=== PATIENT | male | born 1965 | race Caucasian/White ===

== ENCOUNTER 2018-09-10 03:25 | Emergency (ER) | payer BC ==
[2018-09-10 03:33] VITALS: BMI 30.1
[2018-09-10 03:35] VITALS: TEMP 98.5; O2SAT 98
[2018-09-10] MEDS ORDERED: Oxycodone/Acetaminophen 5/325 mg Tab PO STA (03:51)
--- NOTE | 2018-09-10 03:55 | ED PDOC ---
Arrival/HPI - General Chief Complaint: Upper Extremity Problem/Injury Time Seen by Provider: 09/10/18 03:39 Historian: Patient, [employer] ([facility] [employer] ID#[id number]) - History of Present Illness Narrative History of Present Illness (Text): 09/10/18 03:52 53 year old male, with no significant past medical history, presents to the emergency department with left shoulder pain, for 2 days. Patient encounter was translated by [facility] system. Patient states he was at work when he things he pulled it. Patient states he didn't feel much pain in the instance, but felt it the next day. Patient states the pain makes it very difficult for him to sleep. Patient denies any fevers, chills, headache, dizziness, chest pain, shortness of breath, cough, abdominal pain, nausea, vomiting, diarrhea, back pain, neck pain, urinary/bowel changes, or any other complaint. Time/Duration: < week (2 days) Symptom Onset: Gradual Symptom Course: Unchanged Quality: Aching Context: Work Past Medical History - Provider Review Nursing Documentation Reviewed: Yes - Past Medical History Past Medical History: No Previous - Cardiac Hx Pacemaker: No - Pulmonary Hx Respiratory Disorders: No - Neurological Hx Paralysis: No - HEENT Hx HEENT Disorder: No - Renal Hx Renal Disorder: No - Endocrine/Metabolic Hx Endocrine Disorders: No - Hematological/Oncological Hx Blood Transfusions: No - Integumentary Hx Dermatological Disorder: No - Musculoskeletal/Rheumatological Hx Musculoskeletal Disorders: No - Gastrointestinal Hx Gastrointestinal Disorders: No - Genitourinary/Gynecological Hx Genitourinary Disorders: No - Psychiatric Hx Emotional Abuse: No Hx Physical Abuse: No Hx Substance Use: Yes - Surgical History Other/Comment: ABD/BACK SX - Anesthesia Hx Anesthesia Reactions: No Hx Malignant Hyperthermia: No - Suicidal Assessment Feels Threatened In Home Enviroment: No Family/Social History - Physician Review Nursing Documentation Reviewed: Yes Family/Social History: No Known Family HX Smoking Status: Heavy Smoker > 10 Cigarettes Daily Hx Alcohol Use: Yes (SOCIALLY ON WEEKENDS) Hx Substance Use: Yes Hx Substance Use Treatment: No Allergies/Home Meds Allergies/Adverse Reactions: Allergies No Known Allergies Allergy (Verified 09/26/14 19:20) Home Medications: Home Meds Medication Instructions Recorded Confirmed Tramadol HCl [Ultram] 50 mg PO TID PRN 09/10/18 09/10/18 oxyCODONE/Acetaminophen [Percocet 1 tab PO DAILY PRN 09/10/18 09/10/18 5/325 mg Tab] Review of Systems - Physician Review All systems were reviewed & negative as marked: Yes - Review of Systems Constitutional: absent: Fevers, Night Sweats Respiratory: absent: SOB, Cough Cardiovascular: absent: Chest Pain Gastrointestinal: absent: Abdominal Pain, Diarrhea, Nausea, Vomiting Musculoskeletal: Arthralgias (left shoulder). absent: Back Pain, Neck Pain Neurological: absent: Headache, Dizziness Physical Exam - Physical Exam Narrative Physical Exam (Text): 09/10/18 03:56 Gen: VS reviewed, alert, well developed, well nourished, nontoxic, mild distress. Neck: no JVD, supple, no adenopathy. CV: regular rate, regular rhythm, no rubs, no murmur, no gallops, S1, S2, pulses equal and strong. Pulm: no distress, clear to auscultation, no wheeze, no rhonchi, breath sounds equal, no rales. Ext: LUE: Significantly limited ROM in shoulder including abduction flexion and internal rotation, positive impingement, no bone tenderness. no edema. Skin: good color, no rash, no cyanosis. Psych: responds appropriately to questions, normal affect. Neuro: oriented x 3, CN2-12 intact grossly, motor intact, sensation intact. 09/10/18 04:18 Vital Signs Reviewed: Yes Vital Signs Temp Pulse Resp BP Pulse Ox 09/10/18 03:33 98.5 F 78 18 160/101 H 98 Temperature: Afebrile Blood Pressure: Hypertensive Pulse: Regular Respiratory Rate: Normal Appearance: Positive for: Well-Appearing, Non-Toxic, Comfortable Pain Distress: None Mental Status: Positive for: Alert and Oriented X 3 Medical Decision Making ED Course and Treatment: 09/10/18 04:02 Impression: 53 year old male presents with left shoulder pain. Plan: -- X-ray left shoulder -- Percocet -- Sling -- Reassess and disposition Prior Visits: Notes and results from previous visits were reviewed. 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 I have reviewed the chart and agree that the record accurately reflects my personal performance of the history, physical exam, medical decision making, and the department course for this patient. I have also personally directed, reviewed, and agree with the discharge instructions and disposition. Disposition/Present on Arrival - Present on Arrival Any Indicators Present on Arrival: No History of DVT/PE: No History of Uncontrolled Diabetes: No Urinary Catheter: No History of Decub. Ulcer: No History Surgical Site Infection Following: None - Disposition Have Diagnosis and Disposition been Completed?: Yes Diagnosis: Calcific tendinitis of left shoulder Disposition: HOME/ ROUTINE Disposition Time: 04:20 Patient Plan: Discharge Condition: STABLE Discharge Instructions (ExitCare): Calcific Tendonitis of the Shoulder (DC) Print Language: TUVALU[place] Prescriptions: Ibuprofen [Motrin Tab] 600 mg PO QID #42 tab oxyCODONE/Acetaminophen [Percocet 5/325 mg Tab] 1 ea PO QID 3 Days #12 tab Referrals: Kylah Mast MD [Primary Care Provider] - Follow up with primary Josafat Rudd MD [Staff Provider] - Follow up with primary Forms: [employer] (Amharic), WORK NOTE
[2018-09-10 05:02] VITALS: BP 123/70; PULSE 73
[2018-09-10 05:05] VITALS: RESP 20
--- NOTE | 2018-09-10 09:45 | RAD ---
Date of service: 09/10/2018 PROCEDURE: Radiographs of the Left Shoulder HISTORY: pain COMPARISON: No prior. FINDINGS: BONES: Normal. No fracture. JOINTS: Normal. Glenohumeral and acromioclavicular joints preserved. No osteoarthritis. SOFT TISSUES: There is a large calcification at the insertion of the rotator cuff on the humeral tuberosity. This measures 34 mm anterior to posterior by 7 mm height by 18 mm wide. OTHER FINDINGS: None. IMPRESSION: Calcific tendinitis
== END 2018-09-10 05:03 | disposition home or self-care (01) ==
LOC: ED 03:25
DX: M75.32 Calcific tendinitis of left shoulder (principal); F17.210 Nicotine dependence, cigarettes, uncomplicated